=== PATIENT | female | born 1960 | race Caucasian/White ===

== ENCOUNTER 2021-12-28 19:04 | Emergency (ER) | payer BC, SELFPAY ==
[2021-12-28] VITALS (9 sets, daily range): BP systolic 126–146; BP diastolic 73–83; PULSE 83; RESP 20; TEMP 37; O2SAT 100
--- NOTE | 2021-12-28 22:48 | PC.NURSE ---
patient states she is still seeing the floater in her right eye. patient denies seeing the flashing at this time. patient is concerned for a detached retina
--- NOTE | 2021-12-29 00:06 | ED.EYEPROB ---
HPI - Eye Problem General Chief complaint: Eye Problems Stated complaint: ?detached retina Time Seen by Provider: 12/28/21 23:12 Source: patient Mode of arrival: ambulatory Limitations: no limitations History of Present Illness HPI Narrative: This is a 61-year-old female that presents to the emergency department for visual problems noted today. Reports since around 6:00 she has noted floaters in her right eye. Initially she was also experiencing some flashes in the eye. This has seemed to resolve. She does report she has had some intermittent blurry vision in the right eye over the last week. Reports she has been told by her police or patrol park officer that she has a spot on the back of her eye and would be at increased risk of retinal detachment. Denies fever, vomiting, or injury to the eye. Related Data Allergies Allergy/AdvReac Type Severity Reaction Status Date / Time codeine Allergy Headache Verified 12/28/21 22:50 Review of Systems Review of Systems: CONSTITUTIONAL: Denies fever EYES: Reports visual changes. Denies redness, or discharge. All systems reviewed & are unremarkable except as noted in HPI and below PMFSH Past Medical History Medical History (Updated 12/29/21 @ 00:55 by Juliana Castro PA-C) History of gastroesophageal reflux (GERD) Social History Social History (Updated 12/29/21 @ 00:09 by Juliana Castro PA-C) Smoking status: Never smoker Exam Narrative: GENERAL: Well-appearing, well-nourished, and in no acute distress. HEAD: Normocephalic, atraumatic. EYES: PERRLA and EOMI. No fluorescein stain uptake. Eyelid everted, no foreign bodies noted. Visual acuity on the right 20/30, on the left 20/25. Pressure on the right 17. Pressure on the left 20 EXTREMITIES: Normal range of motion. No edema. SKIN: Warm, dry, no rash. NEURO: No focal deficits. Alert and oriented x3. PSYCH: Normal mood and affect Course Consultations Consultation #1: Spoke with Dr. Patino, ophthalmology at [facility], about patient and workup who recommends transfer to the ER for further evaluation Date: 12/29/21 Time: 00:51 Vital Signs Vital signs: Vital Signs Temperature 98.6 F 12/28/21 19:17 Pulse Rate 83 12/28/21 19:17 Respiratory Rate 20 12/28/21 19:17 Blood Pressure 129/73 12/28/21 19:17 Pulse Oximetry 100 12/28/21 19:17 Oxygen Delivery Room Air 12/28/21 19:17 Temperature 98.6 F 12/28/21 19:17 Pulse Rate 83 12/28/21 19:17 Respiratory Rate 20 12/28/21 19:17 Blood Pressure 146/83 H 12/28/21 23:31 Pulse Oximetry 100 12/28/21 23:31 Oxygen Delivery Room Air 12/28/21 19:17 MDM - Eye Problem MDM Narrative Medical decision making narrative: Patient presents to the emergency department for abnormal flashes and floaters in the right eye. Reportedly is followed by an police or patrol park officer back at home. Was told that she was at increased risk for retinal detachment, which prompted her to be seen. No concerning visual acuity changes. No fluorescein stain uptake. Eye pressures are normal bilaterally. Spoke with Dr. Patino, ophthalmology at [facility], about patient and workup who recommends transfer to the ER for further evaluation. Patient will be transferred via private vehicle, her will be driving her. Instructed to report directly to [facility] ER Critical Care Time Critical Care Time Critical Care Time: No Discharge Plan Discharge Clinical Impression: Vitreous floaters of right eye Patient Disposition: Acute Care Hospital Condition: Stable Additional Instructions: Report directly to [facility] ER. Nothing to eat or drink [address] [place] [address] Follow-up/Referrals: PHYSICIAN NOT ON STAFF,NONSTAFF [Primary Care Provider] -
[2021-12-29] MEDS: FLUORESCEIN SOD 1 MG/STRIP (00:10)
[2021-12-29] MEDS: TETRACAINE HCL 0.5% OPHTH SOLN 4 ML BTL 1 DROP (00:10)
[2021-12-29] MEDS: DACRIOSE EYE IRRIGATION 118 ML BOTTLE (00:10)
[2021-12-29 01:09] VITALS: BP 136/86; PULSE 86; RESP 12; O2SAT 100
== END 2021-12-29 01:19 | disposition short-term general hospital (02) ==
PROVIDERS: Emergency Provider Emergency Medicine
DX: H43.391 Other vitreous opacities, right eye (principal); K21.9 Gastro-esophageal reflux disease without esophagitis
CPT/HCPCS: 99283; A9270